=== PATIENT | male | born 1935 | race Caucasian/White ===

== ENCOUNTER 2022-01-02 11:50 | Inpatient (IN) | payer MEDICARE, OTHER ==
[~2022-01-02] VITALS: Ht 185.4 cm; Wt 78.0 kg
[2022-01-02 12:00] LABS: ABG BASE EXCESS -8.9 mmol/L (-2.0-2.0); ABG HCO3 18.9 mmol/L (22.0-26.0); ABG OXYGEN SATURATION 95.5 % (94-97); ABG PCO2 (T) 49.7 mmHg (35.0-48.0); ALLEN'S TEST POSITIVE; FCOHb 0.3 % (0.0-3.9); FMetHb 0.1 % (0.0-1.5); FO2Hb 95.1 % (94-97); TOTAL HEMOGLOBIN 10.4 G/dl (14.0-18.0)
[2022-01-02 12:33] LABS: BASOPHILS % (AUTO) 0.4 % (0-1); EOSINOPHILS # (AUTO) 0.4 X10'3 (0-0.9); EOSINOPHILS % (AUTO) 4.6 % (0-6); HEMATOCRIT 31.3 % (42.0-52.0); HEMOGLOBIN 10.3 g/dl (14.0-17.9); LYMPHOCYTES % (AUTO) 11.4 % (21-51); MEAN CORPUSCULAR HEMOGLOBIN 30.7 PG (27.0-31.0); MEAN CORPUSCULAR HGB CONC 32.7 g/dL (33.0-36.5); MEAN CORPUSCULAR VOLUME 93.8 FL (78-98); MEAN PLATELET VOLUME 7.8 FL (7.4-10.4); MONOCYTES # (AUTO) 0.7 X10'3 (0-0.9); MONOCYTES % (AUTO) 7.8 % (2-12); NEUTROPHILS # (AUTO) 6.6 X10'3 (1.8-7.7); NEUTROPHILS % (AUTO) 75.8 % (42-75); PLATELET COUNT 173 X10'3 (140-440); RED BLOOD COUNT 3.34 X10'6 (4.70-6.10); RED CELL DISTRIBUTION WIDTH 15.8 % (11.5-14.5); WHITE BLOOD COUNT 8.7 X10'3 (4.5-11.0)
[2022-01-02 12:37] LABS: APTT 31 SECONDS (22-32)
[2022-01-02 12:56] LABS: ALANINE AMINOTRANSFERASE 22 U/L (12-78); ALBUMIN 2.1 G/DL (3.4-5.0); ALBUMIN/GLOBULIN RATIO 0.6 (1.1-1.5); ALKALINE PHOSPHATASE 83 IU/L (46-116); ANION GAP 10 (8-16); ASPARTATE AMINO TRANSFERASE 20 U/L (10-37); BILIRUBIN,TOTAL 0.2 MG/DL (0.1-1.0); BLOOD UREA NITROGEN 76 MG/DL (7-18); BUN/CREATININE RATIO 31.1 (5.4-32.0); CALCIUM 8.6 MG/DL (8.5-10.1); CHLORIDE 122 MMOL/L (99-107); CREATININE 2.44 MG/DL (0.60-1.10); GLUCOSE 123 MG/DL (70-104); POTASSIUM 4.9 MMOL/L (3.5-5.1); SODIUM 151 MMOL/L (135-145); TOTAL CARBON DIOXIDE 19.4 MMOL/L (24-32); TOTAL PROTEIN 5.7 G/DL (6.4-8.2); eGFR 25 ML/MIN
[2022-01-02 12:59] LABS: MAGNESIUM 2.8 MG/DL (1.5-2.4)
[2022-01-02 14:30] LABS: ABG OXYGEN SATURATION 98.1 % (94-97); ABG PCO2 (T) 50.1 mmHg (35.0-48.0); ABG PO2 (T) 134.8 mmHg (75.0-100.0); FMetHb 0.1 % (0.0-1.5); TOTAL HEMOGLOBIN 11.3 G/dl (14.0-18.0)
[2022-01-02] MEDS ORDERED: LORazepam 2 mg/ml vial IV ONE (14:35)
--- NOTE | 2022-01-02 17:19 | NUR ---
[facility] [phone]
[2022-01-02 21:08] LABS: CLARITY,URINE CLOUDY (Clear); COLOR,URINE YELLOW (Yellow); GLUCOSE, URINE NEGATIVE (Neg); KETONES,URINE TRACE mg/dl (Neg); LEUKOCYTE ESTERASE ,URINE SMALL (Neg); NITRITES, URINE NEGATIVE (Neg); OCCULT BLOOD,URINE LARGE (Neg); PH,URINE 5.5 (4.8-8.0); PROTEIN,URINE 100 mg/dl (Neg); UROBILINOGEN,URINE 0.2 E.U/dL (0.2-1.0)
[2022-01-02 21:14] LABS: UA COLLECTION TYPE FOLEY CATH
[2022-01-02 21:15] LABS: BACTERIA,URINE FEW /HPF (Neg); RBC,URINE 20-50 /HPF (0-2); SQUAMOUS EPITHELIAL CELL,UR FEW /LPF (FEW); WBC,URINE 20-30 /HPF (0-4); YEAST MODERATE /HPF (NEGATIVE)
[2022-01-02] MEDS ORDERED: CefTRIAXone 2gm/NS 100ml IVPB 100 ML IV ONE (21:20)
[2022-01-02 22:34] LABS: ABG HCO3 19.4 mmol/L (22.0-26.0); ABG OXYGEN SATURATION 96.3 % (94-97); ABG PCO2 (T) 48.5 mmHg (35.0-48.0); ABG PO2 (T) 93.8 mmHg (75.0-100.0); ALLEN'S TEST POSITIVE; FCOHb 0.1 % (0.0-3.9); FMetHb 0.1 % (0.0-1.5); FO2Hb 96.1 % (94-97); TOTAL HEMOGLOBIN 10.6 G/dl (14.0-18.0)
[2022-01-02] MEDS ORDERED: CARV-49 PO (22:43)
[2022-01-02] MEDS ORDERED: ASPI81TA52 PO (22:43)
[2022-01-02] MEDS ORDERED: FINA5TAB3 PO (22:43)
[2022-01-02] MEDS ORDERED: LEVO75TA7 PO (22:43)
[2022-01-02] MEDS ORDERED: FLO0.4C PO (22:43)
[2022-01-02] MEDS ORDERED: ESCI10TA PO (22:43)
[2022-01-02] MEDS ORDERED: LEVE250T4 PO (22:43)
[2022-01-03] VITALS (11 sets, daily range): BP systolic 110–132; BP diastolic 34–60
[2022-01-03] MEDS ORDERED: LIDOcaine 2% 10ml TOPICAL JELLY (Urojet) TP ONE (01:15)
[2022-01-03] MEDS ORDERED: potassium Cl 20 mEq SR tablet PO PRN ×2 (01:15)
[2022-01-03] MEDS ORDERED: ondansetron/PF 4mg/2ml inj IV PRN (01:15)
[2022-01-03] MEDS ORDERED: acetaminophen 325mg tablet PO PRN (01:15)
[2022-01-03] MEDS ORDERED: INSU100C10 SQ (02:11)
[2022-01-03] MEDS ORDERED: ASCO-134 PO (02:11)
[2022-01-03] MEDS ORDERED: ENOX40SY7 SUBCUT (02:11)
[2022-01-03] MEDS ORDERED: CYAN100097 PO (02:11)
[2022-01-03] MEDS ORDERED: LORA10TA7 PO (02:11)
[2022-01-03] MEDS ORDERED: MULT-1085 PO (02:11)
--- NOTE | 2022-01-03 07:48 | NUR ---
SPOKE WITH AFTER S[employer]OL PROGRAM ASSISTANT ELIDA REGARDING PT NOT HAVING ANY LABS DONE SINCE 1300 YETSERDAY AND NO ABG SINCE LAST NIGHT AT 2230. RECEIVED VERBAL ORDERS FOR CBC,CMB,MG,PHOS, AND ABG NOW. ORDERS PLACED RECEIVED
[2022-01-03] MEDS: K and/or MAG REPLACEMENT MC SCH (08:00)
[2022-01-03 08:13] LABS: ABG BASE EXCESS -9.2 mmol/L (-2.0-2.0); ABG HCO3 18.1 mmol/L (22.0-26.0); ABG PCO2 (T) 45.1 mmHg (35.0-48.0); ALLEN'S TEST Modified; FCOHb 0.3 % (0.0-3.9); FMetHb 0.5 % (0.0-1.5); FO2Hb 96.2 % (94-97); RESPIRATORY RATE 16 b/min; TOTAL HEMOGLOBIN 10.9 G/dl (14.0-18.0)
[2022-01-03 08:16] LABS: BASOPHILS % (AUTO) 0.3 % (0-1); EOSINOPHILS # (AUTO) 0.1 X10'3 (0-0.9); EOSINOPHILS % (AUTO) 2.6 % (0-6); HEMATOCRIT 30.8 % (42.0-52.0); HEMOGLOBIN 10.1 g/dl (14.0-17.9); LYMPHOCYTES # (AUTO) 0.7 X10'3 (1.1-4.8); LYMPHOCYTES % (AUTO) 11.9 % (21-51); MEAN CORPUSCULAR HEMOGLOBIN 30.5 PG (27.0-31.0); MEAN CORPUSCULAR HGB CONC 32.7 g/dL (33.0-36.5); MEAN CORPUSCULAR VOLUME 93.3 FL (78-98); MEAN PLATELET VOLUME 7.9 FL (7.4-10.4); MONOCYTES # (AUTO) 0.4 X10'3 (0-0.9); MONOCYTES % (AUTO) 7.2 % (2-12); NEUTROPHILS # (AUTO) 4.4 X10'3 (1.8-7.7); PLATELET COUNT 144 X10'3 (140-440); RED BLOOD COUNT 3.31 X10'6 (4.70-6.10); WHITE BLOOD COUNT 5.7 X10'3 (4.5-11.0)
[2022-01-03 08:42] LABS: ALANINE AMINOTRANSFERASE 18 U/L (12-78); ALBUMIN/GLOBULIN RATIO 0.6 (1.1-1.5); ALKALINE PHOSPHATASE 67 IU/L (46-116); ANION GAP 14 (8-16); ASPARTATE AMINO TRANSFERASE 18 U/L (10-37); BILIRUBIN,TOTAL 0.2 MG/DL (0.1-1.0); BLOOD UREA NITROGEN 81 MG/DL (7-18); BUN/CREATININE RATIO 31.5 (5.4-32.0); CALCIUM 8.4 MG/DL (8.5-10.1); CHLORIDE 121 MMOL/L (99-107); CREATININE 2.57 MG/DL (0.60-1.10); GLUCOSE 117 MG/DL (70-104); MAGNESIUM 2.8 MG/DL (1.5-2.4); PHOSPHORUS 6.2 MG/DL (2.3-4.5); POTASSIUM 4.9 MMOL/L (3.5-5.1); SODIUM 154 MMOL/L (135-145); TOTAL CARBON DIOXIDE 18.7 MMOL/L (24-32); TOTAL PROTEIN 5.1 G/DL (6.4-8.2); eGFR 24 ML/MIN
--- NOTE | 2022-01-03 09:04 | NUR ---
INFORMED ESCROW CLERK ELIDA REGARDING NEW LAB VALUES AND PHOSPHOROUS 6.4. NO NEW ORDERS AT THIS TIME.
--- NOTE | 2022-01-03 11:45 | NUR ---
pt chavez RODRIGUEZ at bedside-phone [phone]. JENNIFER Castellanos [phone]
--- NOTE | 2022-01-03 13:21 | NUR ---
Nutrition consult: Noted pt w/ hx of DM, pending A1c. Will continue to monitor. Addendum: 01/03/22 at [address] Amended: Links added.
--- NOTE | 2022-01-03 15:17 | NUR ---
Pt pulled out NG tube. MD aware. Will proceed with swallow eval
[2022-01-03] MEDS: ringers solution, lacted 1,000 ML IV SCH (19:15)
[2022-01-03] MEDS: heparin, porcine 5000 units/ml vial SQ SCH (19:51)
[2022-01-03] MEDS ORDERED: carVEDilol 3.125mg tablet PO SCH (20:00)
[2022-01-03] MEDS: dexmedetomidine/D5W 100mL 100 ML IV SCH (22:00)
[2022-01-04] VITALS (25 sets, daily range): BP systolic 79–165; BP diastolic 33–59
[2022-01-04] MEDS ORDERED: cefTRIAXone 1g/NS 100ml IVPB 100 ML IV SCH
[2022-01-04] MEDS: ringers solution, lacted 1,000 ML IV SCH ×4 (01:09→23:11)
[2022-01-04] MEDS ORDERED: normal saline 500ml IV soln 500 ML IV ONE (01:10)
[2022-01-04] MEDS ORDERED: LIDOcaine 2% 10ml TOPICAL JELLY (Urojet) TP ONE (01:10)
[2022-01-04] MEDS ORDERED: normal saline 1000ml 1,000 ML IV ONE (02:30)
[2022-01-04] MEDS ORDERED: albumin (human) 25% 100 ML IV solution IV ONE (02:55)
[2022-01-04] MEDS: NORepinephrine 8mg/ 250ml NS 250 ML IV SCH ×4 (03:07→21:53)
--- NOTE | 2022-01-04 03:44 | NUR ---
86 year old man, admitted 12/13/2021, admitted to ICU 12/14/2021, DNI, NDA, no isolation, no restraints. Pt transferred from [facility], in poor condition, medically and physically. History of previous CVA, DM, HTN, BPH presenting with confusion, being admitted to the ICU for further management of hypercapnic respiratory failure and metabolic encephalopathy. 01/03: He remains difficult to arouse. Lactate is normal though he remains with slight metabolic acidosis. ?RTA vs Diarrhea related bicarb loss. Thus far no BM since admission. Respiratory component of acidosis largely corrected with BiPAP. Currently, Pt is Awake alert, following simple commands, afebrile. left arm weakness. HR 60's V-Paced, weak pulses. BP 115/74. Pts urine OP grossly low, BP began to drop, 75/39, contacted Dr Hernández, ordered NS 500 ml bolus times 2, then ordered Albumin and start Levophed. Pt echo shows Rt sided failure. Pt on SQ Heparin for DVT prophylaxis. LR infusing via RAC #20. Levo infusing at .04 mcgs. via RAC. Pt remains on BiPAP, FIO2 40% PO 99%, RR 20, tolerating well. Breath sounds, clear to diminished, equal symmetrical non labored. Hypoactive bowel sounds, soft nontender, rounded, NPO pending Barium Swallow. Rectal tube in place, draining brown stool. Glucose check Q 6 hours 96-88. Schmitt was replaced, pending Urine culture. UA shows UTI. Draining gross minimal amount as mentioned earlier. Stage 4 sacral pressure ulcer, cleansed and dressed with 4x4 and Optifoam. Wound consult placed. left arm skin tear, dressed. Pt remains safe, continue to monitor. Addendum: 01/04/22 at 0423 by Benjamin Burgess RN In addition to skin pt has a rash on trunk, back arms and legs.
[2022-01-04] MEDS: tamsulosin 0.4mg capsule PO SCH (08:00)
[2022-01-04] MEDS: finasteride 5mg tablet PO SCH (08:00)
[2022-01-04] MEDS: aspirin 81mg, enteric-coated 1 TAB TABLET.DR PO SCH (08:00)
[2022-01-04] MEDS: cyanocobalamin 500mcg tablet PO SCH (08:00)
[2022-01-04] MEDS: levoTHYROXINE 75mcg tablet PO SCH (08:00)
[2022-01-04] MEDS: ascorbic acid 500mg tablet PO SCH (08:00)
[2022-01-04] MEDS ORDERED: ESCITALOPRAM OXALATE 5 MG TABLET PO SCH (08:00)
[2022-01-04] MEDS: K and/or MAG REPLACEMENT MC SCH (08:00)
[2022-01-04] MEDS: multivitamins, therapeutics tablet PO SCH (08:00)
[2022-01-04] MEDS: ESCITALOPRAM OXALATE 5 MG TABLET PO SCH (08:00)
[2022-01-04] MEDS ORDERED: enoxaparin 40mg/0.4ml syringe SUBCUT SCH (08:00)
[2022-01-04] MEDS: heparin, porcine 5000 units/ml vial SQ SCH ×2 (08:22→20:00)
[2022-01-04 08:26] LABS: BASOPHILS % (AUTO) 0.5 % (0-1); EOSINOPHILS # (AUTO) 0.4 X10'3 (0-0.9); EOSINOPHILS % (AUTO) 6.3 % (0-6); HEMATOCRIT 32.7 % (42.0-52.0); HEMOGLOBIN 10.7 g/dl (14.0-17.9); LYMPHOCYTES # (AUTO) 1.1 X10'3 (1.1-4.8); LYMPHOCYTES % (AUTO) 16.8 % (21-51); MEAN CORPUSCULAR HEMOGLOBIN 30.8 PG (27.0-31.0); MEAN CORPUSCULAR HGB CONC 32.6 g/dL (33.0-36.5); MEAN CORPUSCULAR VOLUME 94.3 FL (78-98); MEAN PLATELET VOLUME 8.2 FL (7.4-10.4); MONOCYTES # (AUTO) 0.5 X10'3 (0-0.9); MONOCYTES % (AUTO) 8.5 % (2-12); NEUTROPHILS # (AUTO) 4.3 X10'3 (1.8-7.7); NEUTROPHILS % (AUTO) 67.9 % (42-75); PLATELET COUNT 151 X10'3 (140-440); RED BLOOD COUNT 3.47 X10'6 (4.70-6.10); RED CELL DISTRIBUTION WIDTH 16.5 % (11.5-14.5); WHITE BLOOD COUNT 6.3 X10'3 (4.5-11.0)
[2022-01-04 08:52] LABS: ANION GAP 11 (8-16); BLOOD UREA NITROGEN 86 MG/DL (7-18); CHLORIDE 126 MMOL/L (99-107); GLUCOSE 112 MG/DL (70-104); SODIUM 153 MMOL/L (135-145); TOTAL CARBON DIOXIDE 16.3 MMOL/L (24-32)
[2022-01-04 08:53] LABS: ALANINE AMINOTRANSFERASE 17 U/L (12-78); ALBUMIN 2.4 G/DL (3.4-5.0); ALBUMIN/GLOBULIN RATIO 0.7 (1.1-1.5); ALKALINE PHOSPHATASE 58 IU/L (46-116); ASPARTATE AMINO TRANSFERASE 22 U/L (10-37); BILIRUBIN,TOTAL 0.3 MG/DL (0.1-1.0); BUN/CREATININE RATIO 33.1 (5.4-32.0); CALCIUM 8.6 MG/DL (8.5-10.1); MAGNESIUM 2.9 MG/DL (1.5-2.4); eGFR 23 ML/MIN
[2022-01-04] MEDS: dexmedetomidine/D5W 100mL 100 ML IV SCH ×2 (11:00→21:43)
[2022-01-04] MEDS: midodrine tablet 2.5 MG TABLET PO SCH ×2 (12:00→16:00)
[2022-01-04] MEDS: sevelamer carbonate 0.8gm powder pkt PO SCH ×2 (12:30→16:37)
[2022-01-04] MEDS ORDERED: vancomycin 1,750 MG in NS 350ml IV soln IV ONE (13:00)
--- NOTE | 2022-01-04 13:00 | NUR ---
This RN spoke to both Grandson, JENNIFER [phone] and Daughter Margarita [phone] and family wants to wait to place NG tube. They are discussing as a family if they want to continue with the tube feedings or make pt comfort care. Family states that pt was very uncomfortable with the NG tube he had before and they don't want to cause the pt any more distress. Family will call and discuss with care team in the am.
--- NOTE | 2022-01-04 13:37 | NUR ---
Kit Consult: Pt admit DX metabolic encephalopathy, hypercapneic respiratory failure, KALINA, and stage IV sacral pressure ulcer pending [facility] assessment this admit per EMR. Pt hx T2DM A1C pending this admit. Pt remains NPO per [employer]OR recs this AM w/ NG to be placed and TF to start today per rail express clerk at rounds; pending consult. Pt initially on Bipap now on 4L NC per RN/EMR. TF recs below for when to start; pt would benefit from Tom supplementation w/ water flushes given wound healing needs. Will monitor for further nutrition intervention needs this admit. Rec: 1. Once NG placed and TF to start; continuous TF via NG per MD using Pivot 1.5 at 65ml/hr goal; to provide 1560ml volume/day, 2340 kcals, 1170ml water, and 146g protein. 2. additional water flush 200ml Q4H 3. Tom supplementation w/ free water flushes BID for wound; to administer mix one packet of Tom w/ 140ml free water and flush w/ 30ml water before and after each administration via NG 4. PALB Q /; daily wts 5. routine bowel care 6. MVI, B12, and vitamin C per MD 7. advance diet as medically indicated to regular; consider carb controlled restriction IF A1C elevated for age, intake adequate, and elevated Glu Addendum: 01/04/22 at [address] Amended: Links added.
--- NOTE | 2022-01-04 14:19 | NUR ---
TF Consult: TF recs below; will monitor for EN tolerance and adjustment needs as medically indicated. Rec: 1. Continuous TF via NG per MD using Pivot 1.5 at 65ml/hr goal; to provide 1560ml volume/day, 2340 kcals, 1170ml water, and 146g protein. 2. additional water flush 200ml Q4H 3. Tom supplementation w/ free water flushes BID for wound; to administer mix one packet of Tom w/ 140ml free water and flush w/ 30ml water before and after each administration via NG 4. PALB Q /; daily wts 5. routine bowel care 6. MVI, B12, and vitamin C per MD 7. advance diet as medically indicated to regular; consider carb controlled restriction IF A1C elevated for age, intake adequate, and elevated Glu Addendum: 01/04/22 at [address] Amended: Links added.
--- NOTE | 2022-01-04 17:22 | NUR ---
Spoke to Susan in Xray re diagnostic reading on pts chest xray to verify PICC placement. They are sending back to get an accurate read so we know if we can use PICC line or not.
--- NOTE | 2022-01-04 17:45 | NUR ---
pts sand bed arrived and this RN and tech were in room with bed getting set up to transfer pt to new bed. Pt became obtunded and desaturated to 70's with NC at 6L. Placed a non-rebreather with no success increasing saturation. Placed pt back on bipap at 50% and saturation came back to 98%. Pt is no longer responding voice or pain (sternal rub). Altered family, grandson POSaeid says he is going to come tomorrow to say goodbye and then likely put pt on comfort care.
[2022-01-04 19:23] LABS: ABG BASE EXCESS -14.6 mmol/L (-2.0-2.0); ABG HCO3 13.6 mmol/L (22.0-26.0); ABG OXYGEN SATURATION 97.3 % (94-97); ABG PCO2 (T) 41.8 mmHg (35.0-48.0); ABG PO2 (T) 110.5 mmHg (75.0-100.0); ALLEN'S TEST POSITIVE; FCOHb 0.3 % (0.0-3.9); FMetHb 0.6 % (0.0-1.5); FO2Hb 96.4 % (94-97); PATIENT TEMPERATURE 37.8; TOTAL HEMOGLOBIN 12.1 G/dl (14.0-18.0)
[2022-01-04 19:26] LABS: HEMOGLOBIN A1C 4.5 % (4.5-6.2)
[2022-01-05] VITALS (15 sets, daily range): BP systolic 0–167; BP diastolic 0–66
--- NOTE | 2022-01-05 01:40 | NUR ---
Not stable enough to insert feeding tube. Patient is on the BiPap. We will continue to monitor.
[2022-01-05 03:34] LABS: BASOPHILS % (AUTO) 0.3 % (0-1); EOSINOPHILS # (AUTO) 0.1 X10'3 (0-0.9); EOSINOPHILS % (AUTO) 1.3 % (0-6); HEMATOCRIT 29.2 % (42.0-52.0); HEMOGLOBIN 9.5 g/dl (14.0-17.9); LYMPHOCYTES # (AUTO) 1.5 X10'3 (1.1-4.8); LYMPHOCYTES % (AUTO) 22.5 % (21-51); MEAN CORPUSCULAR HEMOGLOBIN 30.6 PG (27.0-31.0); MEAN CORPUSCULAR HGB CONC 32.7 g/dL (33.0-36.5); MEAN CORPUSCULAR VOLUME 93.8 FL (78-98); MEAN PLATELET VOLUME 7.9 FL (7.4-10.4); MONOCYTES # (AUTO) 0.8 X10'3 (0-0.9); MONOCYTES % (AUTO) 11.6 % (2-12); NEUTROPHILS # (AUTO) 4.2 X10'3 (1.8-7.7); NEUTROPHILS % (AUTO) 64.3 % (42-75); PLATELET COUNT 184 X10'3 (140-440); RED BLOOD COUNT 3.11 X10'6 (4.70-6.10); RED CELL DISTRIBUTION WIDTH 16.2 % (11.5-14.5); WHITE BLOOD COUNT 6.5 X10'3 (4.5-11.0)
[2022-01-05] MEDS: dexmedetomidine/D5W 100mL 100 ML IV SCH (03:35)
[2022-01-05 03:42] LABS: ALANINE AMINOTRANSFERASE 18 U/L (12-78); ALBUMIN 2.1 G/DL (3.4-5.0); ALBUMIN/GLOBULIN RATIO 0.6 (1.1-1.5); ALKALINE PHOSPHATASE 65 IU/L (46-116); ANION GAP 18 (8-16); ASPARTATE AMINO TRANSFERASE 14 U/L (10-37); BILIRUBIN,TOTAL 0.3 MG/DL (0.1-1.0); BLOOD UREA NITROGEN 86 MG/DL (7-18); BUN/CREATININE RATIO 26.3 (5.4-32.0); CALCIUM 8.2 MG/DL (8.5-10.1); CHLORIDE 121 MMOL/L (99-107); CREATININE 3.27 MG/DL (0.60-1.10); GLUCOSE 111 MG/DL (70-104); POTASSIUM 5.2 MMOL/L (3.5-5.1); SODIUM 154 MMOL/L (135-145); TOTAL CARBON DIOXIDE 15.3 MMOL/L (24-32); TOTAL PROTEIN 5.4 G/DL (6.4-8.2); eGFR 18 ML/MIN
[2022-01-05 03:51] LABS: MAGNESIUM 2.6 MG/DL (1.5-2.4)
[2022-01-05] MEDS: aspirin 81mg, enteric-coated 1 TAB TABLET.DR PO SCH (08:00)
[2022-01-05] MEDS: midodrine tablet 2.5 MG TABLET PO SCH (08:00)
[2022-01-05] MEDS: finasteride 5mg tablet PO SCH (08:00)
[2022-01-05] MEDS: cyanocobalamin 500mcg tablet PO SCH (08:00)
[2022-01-05] MEDS: ascorbic acid 500mg tablet PO SCH (08:00)
[2022-01-05] MEDS: tamsulosin 0.4mg capsule PO SCH (08:00)
[2022-01-05] MEDS: multivitamins, therapeutics tablet PO SCH (08:00)
[2022-01-05] MEDS: levoTHYROXINE 75mcg tablet PO SCH (08:00)
[2022-01-05] MEDS: ESCITALOPRAM OXALATE 5 MG TABLET PO SCH (08:00)
[2022-01-05] MEDS: sevelamer carbonate 0.8gm powder pkt PO SCH (08:30)
[2022-01-05 08:49] LABS: PHOSPHORUS 6.5 MG/DL (2.3-4.5)
[2022-01-05] MEDS ORDERED: LORazepam 2 mg/ml vial IV PRN (12:45)
[2022-01-05] MEDS ORDERED: morphine 10mg/ml inj. IV PRN (12:45)
[2022-01-05] MEDS ORDERED: morphine 10mg/0.5ml (conc. morphine) oral syringe PO PRN (12:45)
[2022-01-05] MEDS ORDERED: vancomycin inj 500 MG in normal saline 100ml IV soln 100 ML IV SCH (13:00)
[2022-01-07] MEDS ORDERED: VANCOMYCIN LEVEL IV ONE (12:30)
== END 2022-01-05 16:30 | DRG 189 ==
LOC: ER 11:51 → ED HOLD 01-03 01:15 → EDBEDREQSVC 01-03 09:31 → ICU 2S 01-03 12:36
PROVIDERS: ADMIT Internal Medicine; ATTEND Internal Medicine
PROC: 5A09457 Assistance with Respiratory Ventilation, 24-96 Consecutive Hours, Continuous Positive Airway Pressure (ICD-10-PCS; 2022-01-02)
PROC: 02H633Z Insertion of Infusion Device into Right Atrium, Percutaneous Approach (ICD-10-PCS; principal; 2022-01-04)
PROC: 5A09357 Assistance with Respiratory Ventilation, Less than 24 Consecutive Hours, Continuous Positive Airway Pressure (ICD-10-PCS; 2022-01-04)
DX: J96.21 Acute and chronic respiratory failure with hypoxia (principal); I21.A1 Myocardial infarction type 2; G93.41 Metabolic encephalopathy; I50.33 Acute on chronic diastolic (congestive) heart failure; I13.0 Hypertensive heart and chronic kidney disease with heart failure and stage 1 through stage 4 chronic kidney disease, or unspecified chronic kidney disease; N17.9 Acute kidney failure, unspecified; E87.0 Hyperosmolality and hypernatremia; E87.2 Acidosis; N39.0 Urinary tract infection, site not specified; J96.22 Acute and chronic respiratory failure with hypercapnia; Z66 Do not resuscitate; L89.159 Pressure ulcer of sacral region, unspecified stage; E03.9 Hypothyroidism, unspecified; N40.0 Benign prostatic hyperplasia without lower urinary tract symptoms; F32.A Depression, unspecified; E11.22 Type 2 diabetes mellitus with diabetic chronic kidney disease; E83.51 Hypocalcemia; E87.8 Other disorders of electrolyte and fluid balance, not elsewhere classified; E11.65 Type 2 diabetes mellitus with hyperglycemia; N18.9 Chronic kidney disease, unspecified; I50.813 Acute on chronic right heart failure; Z20.822 Contact with and (suspected) exposure to COVID-19; L27.0 Generalized skin eruption due to drugs and medicaments taken internally; J44.9 Chronic obstructive pulmonary disease, unspecified; T50.995A Adverse effect of other drugs, medicaments and biological substances, initial encounter; Y92.89 Other specified places as the place of occurrence of the external cause; Z51.5 Encounter for palliative care; Z79.899 Other long term (current) drug therapy; Z86.73 Personal history of transient ischemic attack (TIA), and cerebral infarction without residual deficits; Z90.49 Acquired absence of other specified parts of digestive tract; Z95.810 Presence of automatic (implantable) cardiac defibrillator; Z87.440 Personal history of urinary (tract) infections; Z79.82 Long term (current) use of aspirin
CPT/HCPCS: 36415; 36569; 36600; 71045; 74018; 76942; 80053; 81001; 82803; 82948; 83036; 83605; 83735; 83880; 84100; 84145; 84443; 84484; 85018; 85025; 85610; 85730; 87040; 87077; 87081; 87088; 87635; 92508; 92616; 93005; 93306; 94660; 94760; 99291; C9803; G0378; J0696; J1644; J2060; J2274; J3370; J3490; J7030; J7040; J7120; P9047